=== PATIENT | male | born 1990 | race American Indian/Alaskan Native ===

== ENCOUNTER 2020-09-07 08:23 | Emergency (ER) | payer SELFPAY ==
[2020-09-07 08:29] VITALS: BP 129/96
--- NOTE | 2020-09-07 08:34 | Emergency Department Report ---
ED GI Bleed HPI - General Chief complaint: GI Bleed Stated complaint: BLOOD IN BOWEL Time Seen by Provider: 09/07/20 08:30 Source: patient Mode of arrival: Ambulatory Limitations: No Limitations - History of Present Illness Initial comments: 30-year-old male who reports no significant past history presents to the ER today with complaints of rectal bleeding. Patient states he symptoms started last week. Patient states that each time he have a bowel movement he is noticed blood. He describes bright red blood in the toilet bowl, and on the tissue aft er he has a bowel movement. He reports mild intermittent low abdominal pain as well as straining with bowel movement but denies any hard stool, rectal pain or swelling. He denies any associated nausea or vomiting. He is not on any blood thinners and has no history of bleeding disorders. He denies EtOH abuse or NSAID abuse. Sexual preference is homosexual but he denies any rectal intercourse in the past couple weeks. And he denies similar symptoms in the past MD complaint: blood on toilet paper, blood streaked stool, gross hematochezia -: week(s) (1) - Related Data Previous Rx's Medication Instructions Recorded Last Taken Type DOXYCYCLINE Hyclate [Vibramycin 100 mg PO Q12HR #14 capsule 09/07/20 Unknown Rx CAP] Fluconazole [Diflucan TAB] 200 mg PO QDAY #1 tablet 09/07/20 Unknown Rx Hydrocortisone [Anusol-Hc 2.5% TOP 1 applic RC TID #30 cream..g. 09/07/20 Unknown Rx CREAM] Allergies Allergy/AdvReac Type Severity Reaction Status Date / Time No Known Allergies Allergy Unverified 09/07/20 08:25 ED Review of Systems ROS: Stated complaint: BLOOD IN BOWEL Other details as noted in HPI ED Past Medical Hx - Past Medical History Previous Medical History?: No - Surgical History Hx Appendectomy: Yes - Social History Smoking Status: Never Smoker Substance Use Type: None - Medications Home Medications: Home Medications Medication Instructions Recorded Confirmed Last Taken Type DOXYCYCLINE Hyclate [Vibramycin 100 mg PO Q12HR #14 capsule 09/07/20 Unknown Rx CAP] Fluconazole [Diflucan TAB] 200 mg PO QDAY #1 tablet 09/07/20 Unknown Rx Hydrocortisone [Anusol-Hc 2.5% TOP 1 applic RC TID #30 cream..g. 09/07/20 Unknown Rx CREAM] ED Physical Exam - General Limitations: No Limitations General appearance: alert, in no apparent distress - Head Head exam: Present: atraumatic, normocephalic, normal inspection - Eye Eye exam: Present: normal appearance, PERRL, EOMI Pupils: Present: normal accommodation - ENT ENT exam: Present: normal exam, mucous membranes moist - Neck Neck exam: Present: normal inspection, full ROM - Respiratory Respiratory exam: Present: normal lung sounds bilaterally. Absent: respiratory distress - Cardiovascular Cardiovascular Exam: Present: regular rate, normal rhythm, normal heart sounds - GI/Abdominal GI/Abdominal exam: Present: soft. Absent: distended, tenderness, guarding, rebound - Rectal Rectal exam: Present: normal rectal tone, heme (+) stool, hemorrhoids (Single irritated but nonthrombosed hemorrhoid noted), tenderness (Patient had mild discomfort on digital rectal exam but no apparent mass, induration or fluctuance), other (Scant amount of pinkish colored soft stool in the rectal vault). Absent: fecal impaction - Neurological Exam Neurological exam: Present: alert, oriented X3, CN II-XII intact, normal gait - Psychiatric Psychiatric exam: Present: normal affect, normal mood - Skin Skin exam: Present: intact ED Course Vital Signs 09/07/20 08:27 Temperature 98.6 F Pulse Rate 82 Respiratory 20 Rate Blood Pressure 129/96 O2 Sat by Pulse 99 Oximetry ED Medical Decision Making - Lab Data Result diagrams: 09/07/20 08:45 09/07/20 08:45 - Medical Decision Making 1015: CBC/CMP shows no significant abnormalities. Lipase normal. Urinalysis positive for yeast but otherwise no UTI. While discussing results with patient, he then reported that he is confirmed for possible rectal STD. He states that he did have some mucus discharge along with the bleeding from his rectum. He states that he thinks he may have had rectal gonorrhea in the past because he does remember receiving an IM injection of antibiotics. Rectal swab for gonorrhea and chlamydia obtained and sent to the ER. Patient will be given prophylactic Rocephin IM for possible gonorrhea and he will be started on doxycycline. He does have a small hemorrhoid in the rectal area which I informed him could be contributing to the bleeding but I did recommend that he avoid any rectal intercourse for a few days and also recommend follow-up with GI specialist for sigmoidoscopy/colonoscopy especially with symptoms and not get any better. Patient is well-appearing, nontoxic and not in any acute distress. He denies any pain and he has a soft nontender abdomen. He is neurologically intact with a normal gait. His vital signs are stable. Patient stable at time of discharge. Critical care attestation.: If time is entered above; I have spent that time in minutes in the direct care of this critically ill patient, excluding procedure time. ED Disposition Clinical Impression: Rectal bleeding, External hemorrhoid, Yeast cystitis Disposition: DC- TO HOME OR SELFCARE Is pt being admited?: No Does the pt Need Aspirin: No Condition: Stable Instructions: Genital Yeast Infection, Male, Hemorrhoids, Rectal Bleeding, [id number] Additional Instructions: I recommend that you drink lots of fluids. Take the Diflucan as prescribed. Use the Anusol as prescribed. Recommend that you follow-up with the GI specialist especially if your symptoms persist. Return to the ER if your symptoms changes or worsens in any way. Prescriptions: Hydrocortisone [Anusol-Hc 2.5% TOP CREAM] 1 applic RC TID #30 cream..g. Fluconazole [Diflucan TAB] 200 mg PO QDAY #1 tablet DOXYCYCLINE Hyclate [Vibramycin CAP] 100 mg PO Q12HR #14 capsule Referrals: CA REYNOSO MD [Staff Physician] - 7-10 days [facility] [Provider Group] - 7-10 days Forms: Accompanied Note, Work/School Release Form(ED) Time of Disposition: 10:00
[2020-09-07] MEDS ORDERED: MORPHINE 2 MG/1 ML INJ IV ONE (08:56)
[2020-09-07 09:00] LABS: Hematocrit 43.4 % (35.5-45.6); Hemoglobin 15.1 gm/dl (11.8-15.2); Mean Corpuscular HGB Conc 35 % (32-34); Mean Corpuscular Volume 91 fl (84-94); Platelet Count 317 K/mm3 (140-440); Red Cell Distribution Width 13.7 % (13.2-15.2)
[2020-09-07 09:19] LABS: Bilirubin,Urine NEG (Negative); Blood,Urine NEG (Negative); Color,Urine Yellow (Yellow); Mucus,Urine FEW /HPF; Protein,Urine <15 mg/dL mg/dL (Negative); Urobilinogen,Urine < 2.0 mg/dL (<2.0); WBC,Urine < 1.0 /HPF (0.0-6.0)
[2020-09-07 09:21] LABS: Alanine Aminotransferase 12 units/L (7-56); Albumin 3.8 g/dL (3.9-5); BUN/Creatinine Ratio 9; Blood Urea Nitrogen 9 mg/dL (9-20); Calcium 9.4 mg/dL (8.4-10.2); Hemolysis Index 13
[2020-09-07] MEDS ORDERED: LIDOCAINE-MPF (1%) 10 MG/1 ML VIAL 5 ML INFILTRATI ONE (10:04)
[2020-09-07 10:28] LABS: Total Cells Counted 100
[2020-09-07 10:47] LABS: Platelet Estimate Consistent w Auto; RBC Morphology Normal
== END 2020-09-07 10:30 | disposition home or self-care (01) ==
LOC: ED 08:23
DX: K62.5 Hemorrhage of anus and rectum (principal); K64.4 Residual hemorrhoidal skin tags; N30.80 Other cystitis without hematuria; Z90.49 Acquired absence of other specified parts of digestive tract; Z79.899 Other long term (current) drug therapy
CPT/HCPCS: 36415; 80053; 81001; 82271; 83690; 83735; 85007; 85025; 87591; 96372; 99283; J0696